=== PATIENT | female | born 1975 ===

== ENCOUNTER 2024-09-18 06:19 | Day surgery (SDC) | payer OTHER, SELFPAY | END 2024-09-18 15:07 | disposition home or self-care (01) | LOC: GI 06:19 | PROVIDERS: ATTENDING PHYSICIAN Internal Medicine Gastroenterology | DX: Z12.11 Encounter for screening for malignant neoplasm of colon (principal); K62.1 Rectal polyp | CPT/HCPCS: 45385; 88305 ==